=== PATIENT | female | born 1975 | race African-American/Black ===

== ENCOUNTER 2017-02-06 11:33 | Emergency (ER) | payer OTHER ==
[~2017-02-06 11:33] MED LIST: BACTRIM DS TABL1 TA1 PO; FLONASE16 GM
== END 2017-02-06 12:26 | disposition home or self-care (01) ==
LOC: CED 11:33 → CFTX 11:33
DX: K08.89 Other specified disorders of teeth and supporting structures (principal); I10 Essential (primary) hypertension; J45.909 Unspecified asthma, uncomplicated; Z88.0 Allergy status to penicillin; Z88.2 Allergy status to sulfonamides; Z88.1 Allergy status to other antibiotic agents
CPT/HCPCS: 99283